=== PATIENT | male | born 1960 | race Caucasian/White ===

== ENCOUNTER 2018-06-01 07:58 | Emergency (ER) | payer OTHER ==
[2018-06-01] MEDS ORDERED: ONDANSETRON 4 MG/2 ML VIAL IVP ONE (08:20)
[2018-06-01] MEDS ORDERED: NS 1,000 ML IV ONE (08:20)
--- NOTE | 2018-06-01 08:25 | EDPHY ---
H & P Stated Complaint: driving son to cu this am wasn't recognizing areas he should know Time Seen by Provider: 06/01/18 08:11 HPI/ROS: CHIEF COMPLAINT: Memory issues HISTORY OF PRESENT ILLNESS: The patient is a 58-year-old man who comes to the emergency department after dropping his son off at [facility] this morning. He drove from [place]. He states that when trying to leave the house this morning he had trouble recognizing which door to go out of. He then had trouble recognizing several of the streets while he was driving on in his neighborhood and in his son's neighborhood. He states that he is typically intimately familiar with the streets and this concerned him. He also felt slightly nauseous but did not vomit. He had a headache at 1 point but that is also passed. No trauma. No fevers. Denies vertigo. No focal weakness or deficits. Severity: Moderate Modifying factors: None REVIEW OF SYSTEMS: Constitutional: denies: chills, fever, recent illness, recent injury EENTM: denies: blurred vision, double vision, nose congestion Respiratory: denies: cough, shortness of breath Cardiac: denies: chest pain, irregular heart rate, lightheadedness, palpitations Gastrointestinal/Abdominal: See HPI denies: abdominal pain, diarrhea, vomiting , blood streaked stools Genitourinary: denies: dysuria, frequency, hematuria, pain Musculoskeletal: denies: joint pain, muscle pain Skin: denies: lesions, rash, jaundice, bruising Neurological: See HPI Hematologic/Lymphatic: denies: blood clots, easy bleeding, easy bruising Immunologic/allergic: denies: HIV/AIDS, transplant 10 systems reviewed and negative except as noted EXAM: GENERAL: Well-appearing, well-nourished and in no acute distress. HEAD: Atraumatic, normocephalic. EYES: Pupils equal round and reactive to light, extraocular movements intact, sclera anicteric, conjunctiva are normal. Nystagmus to the left, abnormal test of skew. Eyes remained fixed with head impulse testing ENT: TMs normal, nares patent, oropharynx clear without exudates. Moist mucous membranes. NECK: Normal range of motion, supple without lymphadenopathy or JVD. LUNGS: Breath sounds clear to auscultation bilaterally and equal. No wheezes rales or rhonchi. HEART: Regular rate and rhythm without murmurs, rubs or gallops. ABDOMEN: Soft, nontender, normoactive bowel sounds. No guarding, no rebound. No masses appreciated. BACK: No CVA tenderness, no spinal tenderness, step-offs or deformities EXTREMITIES: Normal range of motion, no pitting or edema. No clubbing or cyanosis. NEUROLOGICAL: Cranial nerves II through XII grossly intact. Normal speech, normal gait. 5/5 strength, normal movement in all extremities, normal sensation , normal reflexes the patient does have some difficulty balancing on his right foot and on his Tippy toes. Some difficulty with heel to toe. NIH stroke score 0. PSYCH: Normal mood, normal affect. SKIN: Warm, dry, normal turgor, no visible rashes or lesions. Source: Patient Exam Limitations: No limitations - Personal History Current Tetanus/Diphtheria Vaccine: Yes - Medical/Surgical History Hx Asthma: No Hx Chronic Respiratory Disease: No Hx Diabetes: No Hx Cardiac Disease: No Hx Renal Disease: No Hx Cirrhosis: No Hx Alcoholism: No Hx HIV/AIDS: No Hx Splenectomy or Spleen Trauma: No Other PMH: denies - Family History Significant Family History: No pertinent family hx - Social History Smoking Status: Never smoked Alcohol Use: None Constitutional: Initial Vital Signs Temperature (C) 36.4 C 06/01/18 08:02 Heart Rate 65 06/01/18 08:02 Respiratory Rate 18 06/01/18 08:02 Blood Pressure 155/97 H 06/01/18 08:02 O2 Sat (%) 19 L 06/01/18 08:02 O2 Delivery Mode Room Air Allergies/Adverse Reactions: No Known Allergies Allergy (Unverified 06/01/18 08:01) Home Medications: Medication Instructions Recorded NK [No Known Home Meds] 06/01/18 Medical Decision Making - Diagnostics EKG Interpretation: An EKG obtained and was read and documented in trace view. Please see trace view for full reading and report. Sinus rhythm, very slight diffuse ST elevation less than 1 mm consistent with early repolarization. Imaging: Discussed imaging studies w/ account relationship manager Radiologist ED Course/Re-evaluation: Patient has a NIH stroke score of 0 however he does have very slight nystagmus that does not appear to fatigue. He also has concerning head impulse test and test of skew as well as some difficulty in balancing. He is typically a runner and very healthy. I am concerned for posterior circulation CVA. Will order lab work and MRI and consult Neurology. 8:40 a.m. Discussed the case with Dr. Sahil Mallory who also recommends CT and CT angio. He will follow patient. 11:00 a.m. we discussed the CT and MRI results. Patient is very reassured. His blood work is normal. He is feeling completely better and is eager to go. We discussed the possibility of TIA and I gave him the option of taking daily aspirin. He will follow up with his primary doctor in the . He declines further workup or testing at this time. Discussed indications for returning. Differential Diagnosis: Partial list of the Differential diagnosis considered include but were not limited to; CVA, TIA, anxiety, amnesia and although unlikely based on the history and physical exam, I also considered infection, concussion, tumor, seizure. - Data Points Laboratory Results: Laboratory Results 06/01/18 08:30 06/01/18 08:30 Medications Given: Discontinued Medications Sodium Chloride (Ns) 1,000 mls @ 0 mls/hr IV ONCE ONE; Wide Open PRN Reason: Protocol Stop: 06/01/18 08:21 Last Admin: 06/01/18 08:41 Dose: 1,000 mls Ondansetron HCl (Zofran) 4 mg IVP EDNOW ONE Stop: 06/01/18 08:21 Last Admin: 06/01/18 08:41 Dose: 4 mg Point of Care Test Results: Chemistry 06/01/18 08:37 POC Troponin I 0.01 ng/mL ng/mL (0.00-0.08) Departure - Departure Disposition: Home, Routine, Self-Care Clinical Impression: Memory changes Condition: Fair Instructions: Mild Cognitive Impairment: New Diagnosis (DC) Referrals: NONE *PRIMARY CARE P,. [Unknown] - As per Instructions Sahil Mallory MD [Medical Doctor] - 5-7 days, if not improved
[2018-06-01 08:39] LABS: PLATELET COUNT 246 10^3/uL (150-400)
--- NOTE | 2018-06-01 08:57 | CPEKG ---
Test Reason : OPEN Blood Pressure : / mmHG Vent. Rate : 057 BPM Atrial Rate : 057 BPM P-R Int : 145 ms QRS Dur : 095 ms QT Int : 423 ms P-R-T Axes : 065 056 033 degrees QTc Int : 412 ms Sinus rhythm Abnormal R-wave progression, early transition Confirmed by Maria R Ramirez ([id number] on 06/01/2018 8:57:33 AM Referred By: MARIA R RAMIREZ Confirmed By:Maria R Ramirez
[2018-06-01 09:08] LABS: INR 0.95 (0.83-1.16); PROTIME(PATIENT) 12.3 SEC (12.0-15.0)
[2018-06-01] MEDS ORDERED: IOPAMIDOL (ISOVUE 370) 100 ML BTL IV ONE (09:47)
[2018-06-01 11:46] VITALS: BP 142/77
== END 2018-06-01 11:35 | disposition home or self-care (01) ==
DX: G31.84 Mild cognitive impairment of uncertain or unknown etiology (principal); E86.9 Volume depletion, unspecified
CPT/HCPCS: 70551-PN; 84484-ER; 96374; J2405; Q9967